=== PATIENT | male | born 2000 | race Caucasian/White ===

== ENCOUNTER 2025-02-28 20:50 | Emergency (ER) | payer OTHER, SELFPAY ==
[2025-02-28 21:01] VITALS: BP 137/84
[2025-02-28 21:49] VITALS: BP 125/76
[2025-02-28 21:57] VITALS: BMI 30.4
[2025-02-28 22:00] VITALS: BP 121/73
[2025-02-28 23:00] VITALS: BP 133/78
[2025-02-28 23:49] VITALS: BP 119/71
[2025-03-01] VITALS: BP 123/71
--- NOTE | 2025-03-01 00:05 | ED.GENMED ---
History of Present Illness
General
Chief Complaint: Chest Pain
Time Seen by Provider: 02/28/25 22:06
History of Present Illness
History of Present Illness:
24-year-old male with no past medical history presents to the emergency department for evaluation of intermittent right sided chest pain and pressure ongoing for the past year. Symptoms are typically short-lived and manageable however tonight while
watching football he had abrupt onset of severe pain that caused him to come to the ER. Denies any associated fevers or chills. Pain is minimal at this time. Denies any dyspnea. 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
has been vaping for at least 5 years. Was previously under the care of a wire rope sales representative who had apparently sent him for an outpatient CT scan that he did not obtain. Denies any fevers or night sweats. Denies any other illicit substance use.
Review of Systems
Review of Systems
Allergies reviewed?: Yes
All Other Systems: ROS reviewed and negative except as documented in HPI and ROS
Phy Exam
Physical Exam
Physical Exam:
GEN: Well appearing, NAD, WDWN
HEENT: Oral mucosa moist, no scleral icterus
Cardiac: Regular rate and rhythm, no murmur
Lung: No respiratory distress, no tachypnea, lungs clear to auscultation bilaterally
MSK: No gross deformity or injuries
Skin: Good color, no pallor or jaundice, no rashes
Neuro: AO x3, moves all extremities freely
Psych: Calm, cooperative
Scores
Heart Score for Chest Pain Patients
STEMI patient?: No
History: Slightly or Non-Suspicious
ECG: Normal
Age: </= 45 years
Risk Factors: No Risk Factors
Troponin: </= Normal Limit
Heart Score for Chest Pain Patients: 0
Heart Score Risk: 2.5% MACE over next 6 weeks
Course
Orders/Labs/Results
Orders:
Orders
02/28/25 21:04
Electrocardiogram (*1) Urgent
Reason for Study: Chest Pain
EKG- Treatment ONCE
02/28/25 22:18
CT Chest W/o Iv Contrast Urgent
Comment:
Reason For Exam: dyspnea/chest pain, chronic vaping
Vital Signs
Initial and Last Documented VS:
Initial Vital Signs
Temp Pulse Resp BP Pulse Ox
97.8 F 79 18 137/84 97
02/28/25 21:01 02/28/25 21:01 02/28/25 21:01 02/28/25 21:01 02/28/25 21:01
Last Documented Vital Signs
Temp Pulse Resp BP Pulse Ox
97.8 F 61 17 123/71 97
02/28/25 21:01 03/01/25 00:15 03/01/25 00:15 03/01/25 00:00 03/01/25 00:15
MDM/Problems Addressed
MDM/Problems Addressed:
EKG independently interpreted by me shows normal sinus rhythm at a rate of [address] changes concerning for ischemia
Likely musculoskeletal etiology given lack of EKG changes or imaging findings on CT scan. No evidence for vaping related lung injury. Patient reports that he did see pulmonology and had pulmonary function testing that was unrevealing. Patient
reassured
*Pulse Oximetry
SaO2: 97
Oxygen Mode of Delivery: Room air
Patient hypoxic: no
*Critical Care Note
Total Time (30-74mins, 75-104mins- exclusive of procedures): Not Applicable
ED Attending Note
-
Portions of this chart may have been created with voice recognition software.� Occasional wrong word or��sound alike� substitutions may have occurred due to the inherent limitations of voice recognition software.
Discharge Plan
Departure
Patient Disposition: Home (Routine Discharge)
Date of Disposition: 03/01/25
Time of Disposition: 00:08
Patient with high blood pressure during this ER visit?: No
Discharge Problem:
Chest wall pain
Instructions: Chest Pain That Is Not Caused by the Heart (DC)
Referrals:
NONE,* [Family Provider, Internal Medicine]
Interventions
Interventions:
*Risk Screen - Suicide Last Done: 02/28/25 21:03
*General Assessment Last Done: 02/28/25 21:03
*Neglect/Abuse Screening Last Done: 02/28/25 21:03
*ED- Fall Risk Assessment Last Done: 02/28/25 21:55
*ED COVID-19 Vaccine History Last Done: 02/28/25 21:03
*ED Influenza Vaccine History Last Done: 02/28/25 21:03
*Nursing Disposition Last Done: 03/01/25 00:27
ED- Cardiac Assessment Last Done: 02/28/25 21:55
Discharge Date and Time
Print Language: ARMENIAN
== END 2025-03-01 00:29 | disposition home or self-care (01) ==
LOC: EMR 20:50
PROVIDERS: EMERGENCY PHYSICIAN Emergency Medicine
DX: R07.89 Other chest pain (principal); F17.290 Nicotine dependence, other tobacco product, uncomplicated
CPT/HCPCS: 99284; 71250; 93005